=== PATIENT | female | born 1985 | race Caucasian/White ===

== ENCOUNTER 2020-11-12 03:33 | Emergency (ER) | payer BC ==
[2020-11-12 04:50] VITALS: BP 94/65; PULSE 81; TEMP 98.2; BMI 29.2
== END 2020-11-12 06:19 | disposition home or self-care (01) ==
LOC: JER 03:33
DX: F11.10 Opioid abuse, uncomplicated (principal); T74.11XA Adult physical abuse, confirmed, initial encounter
CPT/HCPCS: 84703; 99284-25

== ENCOUNTER 2020-11-12 14:23 | Inpatient (IN) | payer BC ==
[2020-11-12 07:08] VITALS: BMI 22.8
[2020-11-12] MEDS ORDERED: MENTHOL/PHENOL 1 EACH UD MM PRN (16:06)
[2020-11-12] MEDS ORDERED: MAGNESIUM CITRATE 300 ML BOTTLE PO PRN (16:06)
[2020-11-12] MEDS ORDERED: BISMUTH SUBSALICYLATE 524 MG/30 ML PO PRN (16:06)
[2020-11-12] MEDS ORDERED: cloNIDine HCL 0.1 MG TABLET PO PRN (16:06)
[2020-11-12] MEDS ORDERED: NICOTINE POLACRILEX 2 MG GUM BUC PRN (16:06)
[2020-11-12] MEDS ORDERED: MAG HYDROX/AL HYDROX/SIMETH 30 ML UNIT-DOSE CUP PO PRN (16:06)
[2020-11-12] MEDS ORDERED: MAGNESIUM HYDROX 2400MG/30ML ORAL SUSPENSION 30 ML CUP PO PRN (16:06)
[2020-11-12] MEDS ORDERED: ONDANSETRON *ODT* 4 MG TABLET SL PRN (16:06)
[2020-11-12] MEDS ORDERED: IBUPROFEN 400 MG TABLET (FP) PO PRN (16:06)
[2020-11-12] MEDS ORDERED: METHOCARBAMOL 500 MG TABLET PO PRN (16:06)
[2020-11-12] MEDS ORDERED: ACETAMINOPHEN 325 MG TABLET (FP) PO PRN ×2 (16:06)
[2020-11-12] MEDS ORDERED: METHADONE HCL 10 MG TABLET (FOR DETOX USE ONLY) PO ONE (16:06)
[2020-11-12] MEDS ORDERED: ALBUTEROL SO4 HFA INHALER IH PRN (16:08)
[2020-11-12] MEDS: hydrOXYzine PAMOATE 25 MG CAPSULE (FP) PO SCH ×2 (18:45→23:45)
[2020-11-12] MEDS: PRENATAL VITAMINS W/ FOLIC ACID TABLET (FP) PO SCH (18:46)
[2020-11-12] MEDS ORDERED: MELATONIN 5 MG TABLETS PO SCH (22:00)
[2020-11-12] MEDS ORDERED: THIAMINE HCL 100 MG TABLET (FP) PO SCH (22:00)
[2020-11-13] MEDS: hydrOXYzine PAMOATE 25 MG CAPSULE (FP) PO SCH ×2 (05:25→09:00)
[2020-11-13] MEDS ORDERED: METHADONE HCL 10 MG TABLET (FOR DETOX USE ONLY) ONE (08:51)
[2020-11-13] MEDS ORDERED: METHADONE HCL 5 MG TABLET (FOR DETOX USE ONLY) ONE (08:52)
[2020-11-13] MEDS: PRENATAL VITAMINS W/ FOLIC ACID TABLET (FP) PO SCH (09:00)
[2020-11-13 09:17] VITALS: BP 96/66; PULSE 76; TEMP 96.8
[2020-11-13] MEDS ORDERED: NICOTINE 21 MG/24 HOURS TOPICAL PATCH TD SCH (10:00)
[2020-11-13] MEDS ORDERED: METHADONE (DETOX) 20 MG, METHADONE (DETOX) 5 MG PO ONE (10:00)
[2020-11-13 12:20] LABS: HEMATOCRIT 38.7 % (32.4-45.2); HEMOGLOBIN 13.2 GM/dL (10.7-15.3); MCH 30.3 pg (25.7-33.7); MCHC 34.1 g/dl (32.0-36.0); MEAN PLT VOLUME 7.6 fl (7.5-11.1); PLATELET COUNT 383 K/MM3 (134-434); RBC 4.35 M/mm3 (3.60-5.2); WHITE BLOOD COUNT 7.7 K/mm3 (4.0-10.0)
[2020-11-13 12:38] LABS: ALBUMIN 3.6 g/dl (3.4-5.0); BLOOD UREA NITROGEN 13.5 mg/dL (7-18); CALCIUM 9.2 mg/dL (8.5-10.1)
[2020-11-13 12:39] LABS: CREATININE 0.9 mg/dL (0.55-1.3)
[2020-11-13 12:41] LABS: BILIRUBIN,TOTAL 0.5 mg/dL (0.2-1); TOT PROT 6.8 g/dl (6.4-8.2)
[2020-11-14] MEDS ORDERED: METHADONE HCL 10 MG TABLET (FOR DETOX USE ONLY) PO ONE (10:00)
[2020-11-15] MEDS ORDERED: METHADONE (DETOX) 10 MG, METHADONE (DETOX) 5 MG PO ONE (10:00)
[2020-11-16] MEDS ORDERED: METHADONE HCL 10 MG TABLET (FOR DETOX USE ONLY) PO ONE (10:00)
[2020-11-17] MEDS ORDERED: METHADONE HCL 5 MG TABLET (FOR DETOX USE ONLY) PO ONE (06:00)
== END 2020-11-13 10:49 | disposition left against medical advice (07) | DRG 770 ==
LOC: YASAS 14:23 → Y3N 16:40
PROVIDERS: ADMIT Allergy & Immunology; ATTEND Allergy & Immunology
PROC: HZ2ZZZZ Detoxification Services for Substance Abuse Treatment (ICD-10-PCS; principal; 2020-11-12)
DX: F11.23 Opioid dependence with withdrawal (principal); F12.20 Cannabis dependence, uncomplicated; F17.210 Nicotine dependence, cigarettes, uncomplicated; F19.280 Other psychoactive substance dependence with psychoactive substance-induced anxiety disorder; F19.24 Other psychoactive substance dependence with psychoactive substance-induced mood disorder; J45.20 Mild intermittent asthma, uncomplicated; G40.909 Epilepsy, unspecified, not intractable, without status epilepticus; M12.9 Arthropathy, unspecified; Z91.410 Personal history of adult physical and sexual abuse
CPT/HCPCS: 36415; 80053; 81025; 84703; 85027; 86780; 99284-25; C9803; U0003; U0005

== ENCOUNTER 2024-02-08 11:20 | Inpatient (IN) | payer BC ==
[2024-02-08 12:24] VITALS: BMI 18.6
[2024-02-08] MEDS ORDERED: BENZONATATE 200 MG CAPSULE PO PRN (12:57)
[2024-02-08] MEDS ORDERED: NALOXONE HCL 0.4 MG/ML VIAL IM PRN (12:57)
[2024-02-08] MEDS ORDERED: MAG HYDROX/AL HYDROX/SIMETH 30 ML UNIT-DOSE CUP PO PRN (12:57)
[2024-02-08] MEDS ORDERED: ONDANSETRON *ODT* 4 MG TABLET SL PRN (12:57)
[2024-02-08] MEDS ORDERED: BENZOCAINE/MENTHOL (CHLORASEPTIC ) LOZENGE MM PRN (12:57)
[2024-02-08] MEDS ORDERED: LOPERAMIDE HCL 2 MG CAPSULE PO PRN (12:57)
[2024-02-08] MEDS ORDERED: BISMUTH SUBSALICYLATE 262 MG/15 ML BTL PO PRN (12:57)
[2024-02-08] MEDS ORDERED: guaiFENesin 600 MG TABLET.ER (FP) PO PRN (12:57)
[2024-02-08] MEDS ORDERED: NALOXONE (NARCAN) HCL 4 MG/0.1 ML SPRAY NS PRN (12:57)
[2024-02-08] MEDS ORDERED: NICOTINE POLACRILEX 4 MG LOZENGE BC PRN (12:57)
[2024-02-08] MEDS ORDERED: IBUPROFEN 400 MG TABLET (FP) PO PRN (12:57)
[2024-02-08] MEDS ORDERED: DICYCLOMINE HCL 10 MG CAPSULE PO PRN (12:57)
[2024-02-08] MEDS ORDERED: ALBUTEROL SO4 HFA INHALER IH PRN (13:03)
[2024-02-08] MEDS: NICOTINE POLACRILEX 4 MG GUM BUC PRN (15:40)
[2024-02-08] MEDS: diazePAM 5 MG TABLET PO SCH (17:54)
[2024-02-08 20:26] LABS: HIV INTERPRETATION NEGATIVE (NEGATIVE)
[2024-02-08] MEDS: levETIRAcetam 500 MG TABLET (FP) PO SCH (22:57)
[2024-02-08] MEDS: THIAMINE 100 MG TABLET PO SCH (22:57)
[2024-02-08] MEDS: MELATONIN 5 MG TABLETS PO SCH (22:57)
[2024-02-09] MEDS: hydrOXYzine PAMOATE 25 MG CAPSULE (FP) PO PRN (02:57)
[2024-02-09] MEDS: METHOCARBAMOL 500 MG TABLET PO PRN (02:57)
[2024-02-09] MEDS: methaDONE 40 MG, methaDONE 10 MG PO SCH (05:40)
[2024-02-09] MEDS ORDERED: methaDONE HCL 10 MG TABLET PO SCH (06:00)
[2024-02-09] MEDS: PRENATAL VITAMINS W/ FOLIC ACID TABLET (FP) PO SCH (10:40)
[2024-02-09] MEDS: PANTOPRAZOLE SOD 40 MG SUSPENSION PACKET PO SCH (10:40)
[2024-02-09] MEDS: methaDONE HCL 10 MG TABLET PO ONE (10:50)
[2024-02-09] MEDS: EMTRICITABINE 200MG/TENOFOVIR 300MG PO SCH (11:00)
[2024-02-09 11:59] LABS: HEMATOCRIT 34.9 % (32.4-45.2); HEMOGLOBIN 11.7 GM/dL (10.7-15.3); MCH 29.1 pg (25.7-33.7); MCHC 33.5 g/dl (32.0-36.0); MEAN CELL VOLUME 86.8 fl (80-96); MEAN PLT VOLUME 6.9 fl (7.5-11.1); PLATELET COUNT 286 10^3/uL (134-434); RBC 4.02 M/mm3 (3.60-5.2); RDW 12.8 % (11.6-15.6); WHITE BLOOD COUNT 3.4 K/mm3 (4.0-10.0)
[2024-02-09 12:00] LABS: POTASSIUM 4.2 mmol/L (3.5-5.1)
[2024-02-09 12:06] LABS: ALBUMIN 2.6 g/dl (3.4-5.0); BLOOD UREA NITROGEN 14.4 mg/dL (7-18); CALCIUM 8.2 mg/dL (8.5-10.1)
[2024-02-09 12:09] LABS: CREATININE 0.6 mg/dL (0.55-1.3)
[2024-02-09 12:10] LABS: BILIRUBIN,TOTAL 0.2 mg/dL (0.2-1); TOT PROT 5.9 g/dl (6.4-8.2)
[2024-02-10] MEDS ORDERED: cloNIDine HCL 0.1 MG TABLET PO PRN
[2024-02-10] MEDS: diazePAM 5 MG TABLET PO PRN (03:39)
[2024-02-10] MEDS: diazePAM 5 MG TABLET PO SCH (06:40)
[2024-02-10] MEDS: MAGNESIUM HYDROX 2400MG/30ML ORAL SUSPENSION 30 ML CUP PO PRN (16:33)
[2024-02-10] MEDS: ACETAMINOPHEN 325 MG TABLET (FP) PO PRN (17:51)
[2024-02-10] MEDS: POLYETHYLENE GLYCOL (HEALTHYLAX) 3350 17 GM PACKET PO PRN (22:37)
[2024-02-11] MEDS: IBUPROFEN 600 MG TABLET (FP) PO PRN (03:30)
[2024-02-11] MEDS: diazePAM 5 MG TABLET PO SCH (06:49)
[2024-02-11] MEDS: DOCUSATE SODIUM 100 MG CAPSULE (FP) PO SCH (13:09)
[2024-02-11 20:58] VITALS: RESP 16
[2024-02-12 06:26] VITALS: TEMP 98.6
[2024-02-12] MEDS: diazePAM 5 MG TABLET PO ONE (06:27)
[2024-02-12] MEDS ORDERED: GLYCERIN 1 RECTAL SUPPOSITORY, ADULT RC ONE (09:33)
[2024-02-12 09:43] VITALS: BP 101/61; PULSE 75
[2024-02-12] MEDS: METHYL SALICYLATE/MENTHOL OINT 30 GM TUBE TP SCH (10:57)
== END 2024-02-12 11:00 | disposition home or self-care (01) | DRG 773 ==
LOC: YASAS 11:20 → Y3N 14:57
PROVIDERS: ADMIT Allergy & Immunology; ATTEND Surgery
PROC: HZ2ZZZZ Detoxification Services for Substance Abuse Treatment (ICD-10-PCS; principal; 2024-02-08)
DX: F11.23 Opioid dependence with withdrawal (principal); F10.230 Alcohol dependence with withdrawal, uncomplicated; F14.20 Cocaine dependence, uncomplicated; F13.20 Sedative, hypnotic or anxiolytic dependence, uncomplicated; F12.20 Cannabis dependence, uncomplicated; F17.210 Nicotine dependence, cigarettes, uncomplicated; F19.280 Other psychoactive substance dependence with psychoactive substance-induced anxiety disorder; F19.24 Other psychoactive substance dependence with psychoactive substance-induced mood disorder; G40.909 Epilepsy, unspecified, not intractable, without status epilepticus; J45.20 Mild intermittent asthma, uncomplicated
CPT/HCPCS: 0241U-QW; 36415; 80053; 80177; 80305; 80307; 81025; 82140; 85027; 86780; 86803; 87389; 87522; 93005; 93010

== ENCOUNTER 2024-03-15 19:33 | Inpatient (IN) | payer BC ==
[2024-03-15 21:04] VITALS: BMI 19.9
[2024-03-15] MEDS ORDERED: ONDANSETRON *ODT* 4 MG TABLET SL PRN (22:06)
[2024-03-15] MEDS ORDERED: NALOXONE (NARCAN) HCL 4 MG/0.1 ML SPRAY NS PRN (22:06)
[2024-03-15] MEDS ORDERED: LOPERAMIDE HCL 2 MG CAPSULE PO PRN (22:06)
[2024-03-15] MEDS ORDERED: MAG HYDROX/AL HYDROX/SIMETH 30 ML UNIT-DOSE CUP PO PRN (22:06)
[2024-03-15] MEDS ORDERED: MAGNESIUM HYDROX 2400MG/30ML ORAL SUSPENSION 30 ML CUP PO PRN (22:06)
[2024-03-15] MEDS ORDERED: guaiFENesin 600 MG TABLET.ER (FP) PO PRN (22:06)
[2024-03-15] MEDS ORDERED: NALOXONE HCL 0.4 MG/ML VIAL IM PRN (22:06)
[2024-03-15] MEDS ORDERED: NICOTINE POLACRILEX 2 MG LOZENGE BC PRN (22:06)
[2024-03-15] MEDS ORDERED: BISMUTH SUBSALICYLATE 524 MG/30 ML PO PRN (22:06)
[2024-03-15] MEDS ORDERED: BENZONATATE 200 MG CAPSULE PO PRN (22:06)
[2024-03-15] MEDS ORDERED: IBUPROFEN 400 MG TABLET (FP) PO PRN (22:06)
[2024-03-15] MEDS ORDERED: IBUPROFEN 600 MG TABLET (FP) PO PRN (22:06)
[2024-03-15] MEDS ORDERED: ACETAMINOPHEN 325 MG TABLET (FP) PO PRN (22:06)
[2024-03-15] MEDS ORDERED: POLYETHYLENE GLYCOL (HEALTHYLAX) 3350 17 GM PACKET PO PRN (22:06)
[2024-03-16 09:28] LABS: CHLORIDE 101 mmol/L (98-107); POTASSIUM 4.1 mmol/L (3.5-5.1); SODIUM 137 mmol/L (136-145)
[2024-03-16 09:29] LABS: HEMATOCRIT 34.5 % (32.4-45.2); HEMOGLOBIN 11.7 GM/dL (10.7-15.3); MCH 29.6 pg (25.7-33.7); MEAN PLT VOLUME 6.8 fl (7.5-11.1); PLATELET COUNT 246 10^3/uL (134-434); RBC 3.96 M/mm3 (3.60-5.2); RDW 13.9 % (11.6-15.6); WHITE BLOOD COUNT 10.6 K/mm3 (4.0-10.0)
[2024-03-16 09:36] LABS: BLOOD UREA NITROGEN 14.7 mg/dL (7-18)
[2024-03-16 09:43] LABS: ALBUMIN 2.9 g/dl (3.4-5.0); ANION GAP 8 mmol/L (4-13); CALCIUM 8.8 mg/dL (8.5-10.1); CO2 28 mmol/L (21-32); GLUCOSE,RANDOM 113 mg/dL (74-106)
[2024-03-16 09:46] LABS: CREATININE 0.7 mg/dL (0.55-1.3); SGOT/AST 49 U/L (15-37); SGPT/ALT 63 U/L (13-61)
[2024-03-16 09:48] LABS: BILIRUBIN,TOTAL 0.9 mg/dL (0.2-1); TOT PROT 6.4 g/dl (6.4-8.2)
[2024-03-16 09:49] LABS: ALK PHOS 236 U/L (45-117)
[2024-03-16] MEDS: NICOTINE 21 MG/24 HOURS TOPICAL PATCH TD SCH (10:52)
[2024-03-16] MEDS: PRENATAL VITAMINS W/ FOLIC ACID TABLET (FP) PO SCH (10:52)
[2024-03-16] MEDS: methaDONE HCL 40 MG DISPERSABLE TABLET PO SCH ×2 (10:58→11:02)
[2024-03-16] MEDS: THIAMINE 100 MG TABLET PO SCH (22:44)
[2024-03-17] MEDS ORDERED: ALBUTEROL SO4 HFA INHALER IH PRN (09:59)
[2024-03-17] MEDS: levETIRAcetam 500 MG TABLET (FP) PO SCH (10:37)
[2024-03-17] MEDS: chlordiazePOXIDE HCL 25 MG CAPSULE PO SCH (10:37)
[2024-03-17] MEDS: SULFAMETHOXAZOLE/TRIMETHOPRIM 800MG/160MG D.S. TABLET PO SCH (13:15)
[2024-03-17] MEDS: BENZOCAINE/MENTHOL (CHLORASEPTIC ) LOZENGE MM PRN (22:39)
[2024-03-18] MEDS: chlordiazePOXIDE HCL 25 MG CAPSULE PO SCH (05:55)
[2024-03-19] MEDS ORDERED: chlordiazePOXIDE HCL 25 MG CAPSULE PO SCH (05:00)
[2024-03-19] MEDS: chlordiazePOXIDE HCL 10 MG CAPSULE PO SCH (05:55)
[2024-03-19] MEDS: BENZONATATE 200 MG CAPSULE PO PRN (17:25)
[2024-03-19] MEDS: guaiFENesin 200 MG/10 ML 10 ML UNIT-DOSE CUPS PO PRN (18:07)
[2024-03-19] MEDS: chlordiazePOXIDE HCL 25 MG CAPSULE PO PRN (22:30)
[2024-03-20] MEDS ORDERED: chlordiazePOXIDE HCL 10 MG CAPSULE PO PRN
[2024-03-20] MEDS ORDERED: chlordiazePOXIDE HCL 10 MG CAPSULE PO SCH (05:00)
[2024-03-20] MEDS: chlordiazePOXIDE HCL 10 MG CAPSULE PO ONE (05:53)
[2024-03-20 08:48] VITALS: BP 121/68; PULSE 84; RESP 18; TEMP 98.2
[2024-03-21] MEDS ORDERED: chlordiazePOXIDE HCL 10 MG CAPSULE PO SCH (05:00)
[2024-03-22] MEDS ORDERED: chlordiazePOXIDE HCL 10 MG CAPSULE PO ONE (05:00)
== END 2024-03-20 09:08 | disposition home or self-care (01) | DRG 773 ==
LOC: YASAS 19:33 → Y6N 22:56 → Y3N 23:05
PROVIDERS: ADMIT Allergy & Immunology; ATTEND Surgery
PROC: HZ2ZZZZ Detoxification Services for Substance Abuse Treatment (ICD-10-PCS; principal; 2024-03-15)
DX: F10.230 Alcohol dependence with withdrawal, uncomplicated (principal); F11.20 Opioid dependence, uncomplicated; F14.20 Cocaine dependence, uncomplicated; F17.210 Nicotine dependence, cigarettes, uncomplicated; J45.20 Mild intermittent asthma, uncomplicated; G40.909 Epilepsy, unspecified, not intractable, without status epilepticus; R40.0 Somnolence; Z56.0 Unemployment, unspecified; Z59.00 Homelessness unspecified
CPT/HCPCS: 36415; 80053; 80305; 80307; 81025; 85027; 86780

== ENCOUNTER 2024-03-24 21:17 | Inpatient (IN) | payer BC ==
[2024-03-24 21:43] VITALS: BMI 22.8
[2024-03-24] MEDS ORDERED: LOPERAMIDE HCL 2 MG CAPSULE PO PRN (23:21)
[2024-03-24] MEDS ORDERED: BISMUTH SUBSALICYLATE 524 MG/30 ML PO PRN (23:21)
[2024-03-24] MEDS ORDERED: NALOXONE HCL 0.4 MG/ML VIAL IM PRN (23:21)
[2024-03-24] MEDS ORDERED: ACETAMINOPHEN 325 MG TABLET (FP) PO PRN (23:21)
[2024-03-24] MEDS ORDERED: IBUPROFEN 600 MG TABLET (FP) PO PRN (23:21)
[2024-03-24] MEDS ORDERED: DICYCLOMINE HCL 10 MG CAPSULE PO PRN (23:21)
[2024-03-24] MEDS ORDERED: IBUPROFEN 400 MG TABLET (FP) PO PRN (23:21)
[2024-03-24] MEDS ORDERED: NALOXONE (NARCAN) HCL 4 MG/0.1 ML SPRAY NS PRN (23:21)
[2024-03-24] MEDS ORDERED: MAGNESIUM HYDROX 2400MG/30ML ORAL SUSPENSION 30 ML CUP PO PRN (23:21)
[2024-03-24] MEDS ORDERED: ONDANSETRON *ODT* 4 MG TABLET SL PRN (23:21)
[2024-03-24] MEDS ORDERED: METHOCARBAMOL 500 MG TABLET PO PRN (23:21)
[2024-03-24] MEDS ORDERED: hydrOXYzine PAMOATE 25 MG CAPSULE (FP) PO PRN (23:21)
[2024-03-25] MEDS ORDERED: ALBUTEROL SO4 HFA INHALER IH PRN (07:05)
[2024-03-25] MEDS ORDERED: diazePAM 5 MG TABLET PO PRN (09:30)
[2024-03-25] MEDS ORDERED: methaDONE HCL 10 MG TABLET PO SCH (09:45)
[2024-03-25] MEDS: methaDONE 80 MG, methaDONE 20 MG PO ONE (10:01)
[2024-03-25] MEDS: diazePAM 5 MG TABLET PO SCH (10:01)
[2024-03-25] MEDS: PRENATAL VITAMINS W/ FOLIC ACID TABLET (FP) PO SCH (10:02)
[2024-03-25] MEDS: levETIRAcetam 250 MG TABLET PO SCH (10:02)
[2024-03-25] MEDS: NICOTINE 14 MG/24 HOURS TOPICAL PATCH TD SCH (10:02)
[2024-03-25 11:02] LABS: HEMATOCRIT 37.6 % (32.4-45.2); HEMOGLOBIN 12.2 GM/dL (10.7-15.3); MCH 29.1 pg (25.7-33.7); MCHC 32.4 g/dl (32.0-36.0); MEAN CELL VOLUME 89.9 fl (80-96); MEAN PLT VOLUME 6.6 fl (7.5-11.1); PLATELET COUNT 477 10^3/uL (134-434); RBC 4.19 M/mm3 (3.60-5.2); WHITE BLOOD COUNT 6.3 K/mm3 (4.0-10.0)
[2024-03-25 11:06] LABS: CHLORIDE 104 mmol/L (98-107); POTASSIUM 3.8 mmol/L (3.5-5.1); SODIUM 138 mmol/L (136-145)
[2024-03-25 11:09] LABS: CALCIUM 9.1 mg/dL (8.5-10.1)
[2024-03-25 11:10] LABS: ALBUMIN 2.9 g/dl (3.4-5.0); ANION GAP 7 mmol/L (4-13); BLOOD UREA NITROGEN 16.4 mg/dL (7-18); CO2 27 mmol/L (21-32); GLUCOSE,RANDOM 142 mg/dL (74-106)
[2024-03-25 11:13] LABS: CREATININE 0.7 mg/dL (0.55-1.3); SGOT/AST 21 U/L (15-37); SGPT/ALT 81 U/L (13-61)
[2024-03-25 11:14] LABS: TOT PROT 6.9 g/dl (6.4-8.2)
[2024-03-25 11:23] LABS: ALK PHOS 267 U/L (45-117)
[2024-03-25 11:38] LABS: BILIRUBIN,TOTAL 0.3 mg/dL (0.2-1)
[2024-03-25] MEDS: MELATONIN 5 MG TABLETS PO SCH (22:23)
[2024-03-25] MEDS: THIAMINE 100 MG TABLET PO SCH (22:23)
[2024-03-26] MEDS: methaDONE 80 MG, methaDONE 20 MG PO SCH (05:53)
[2024-03-26] MEDS: BENZOCAINE/MENTHOL (CHLORASEPTIC ) LOZENGE MM PRN (07:29)
[2024-03-26] MEDS ORDERED: chlordiazePOXIDE HCL 25 MG CAPSULE PO PRN (07:49)
[2024-03-26] MEDS: chlordiazePOXIDE HCL 25 MG CAPSULE PO SCH (10:00)
[2024-03-26] MEDS: BENZONATATE 200 MG CAPSULE PO PRN (11:33)
[2024-03-26] MEDS: guaiFENesin 600 MG TABLET.ER (FP) PO PRN (11:33)
[2024-03-27] MEDS: guaiFENesin 200 MG/10 ML 10 ML UNIT-DOSE CUPS PO PRN (03:02)
[2024-03-27] MEDS ORDERED: diazePAM 5 MG TABLET PO SCH (06:00)
[2024-03-27] MEDS: MAG HYDROX/AL HYDROX/SIMETH 30 ML UNIT-DOSE CUP PO PRN (22:22)
[2024-03-28] MEDS: chlordiazePOXIDE HCL 25 MG CAPSULE PO SCH (05:51)
[2024-03-28] MEDS ORDERED: diazePAM 5 MG TABLET PO SCH (06:00)
[2024-03-28] MEDS: POLYETHYLENE GLYCOL (HEALTHYLAX) 3350 17 GM PACKET PO PRN (14:40)
[2024-03-29] MEDS ORDERED: chlordiazePOXIDE HCL 10 MG CAPSULE PO PRN
[2024-03-29] MEDS: chlordiazePOXIDE HCL 10 MG CAPSULE PO SCH (05:20)
[2024-03-29] MEDS ORDERED: diazePAM 5 MG TABLET PO ONE (06:00)
[2024-03-29] MEDS: NICOTINE POLACRILEX 2 MG GUM BUC PRN (11:34)
[2024-03-29 16:59] VITALS: RESP 16; TEMP 97.7
[2024-03-29 17:52] VITALS: BP 104/50; PULSE 78
[2024-03-30] MEDS ORDERED: chlordiazePOXIDE HCL 10 MG CAPSULE PO SCH (05:00)
[2024-03-31] MEDS ORDERED: chlordiazePOXIDE HCL 10 MG CAPSULE PO ONE (05:00)
== END 2024-03-29 19:20 | disposition left against medical advice (07) | DRG 770 ==
LOC: YASAS 21:17 → Y3N 23:25
PROVIDERS: ADMIT Allergy & Immunology; ATTEND Surgery
PROC: HZ2ZZZZ Detoxification Services for Substance Abuse Treatment (ICD-10-PCS; principal; 2024-03-24)
DX: F10.230 Alcohol dependence with withdrawal, uncomplicated (principal); F14.20 Cocaine dependence, uncomplicated; F11.20 Opioid dependence, uncomplicated; F12.20 Cannabis dependence, uncomplicated; F17.210 Nicotine dependence, cigarettes, uncomplicated; F19.282 Other psychoactive substance dependence with psychoactive substance-induced sleep disorder; F19.24 Other psychoactive substance dependence with psychoactive substance-induced mood disorder; G40.909 Epilepsy, unspecified, not intractable, without status epilepticus; J45.20 Mild intermittent asthma, uncomplicated; Z56.0 Unemployment, unspecified; Z59.00 Homelessness unspecified
CPT/HCPCS: 36415; 71046-TC-FY; 80053; 80305; 80307; 81025; 85027; 86780

== ENCOUNTER 2024-04-15 14:37 | Inpatient (IN) | payer BC ==
[2024-04-15 14:57] VITALS: BMI 20.8
[2024-04-15] MEDS ORDERED: ALBUTEROL SO4 HFA INHALER IH PRN (16:39)
[2024-04-15] MEDS ORDERED: guaiFENesin 600 MG TABLET.ER (FP) PO PRN (16:40)
[2024-04-15] MEDS ORDERED: POLYETHYLENE GLYCOL (HEALTHYLAX) 3350 17 GM PACKET PO PRN (16:40)
[2024-04-15] MEDS ORDERED: NALOXONE HCL 0.4 MG/ML VIAL IM PRN (16:40)
[2024-04-15] MEDS ORDERED: NICOTINE POLACRILEX 2 MG LOZENGE BC PRN (16:40)
[2024-04-15] MEDS ORDERED: NICOTINE POLACRILEX 2 MG GUM BUC PRN (16:40)
[2024-04-15] MEDS ORDERED: MAGNESIUM HYDROX 2400MG/30ML ORAL SUSPENSION 30 ML CUP PO PRN (16:40)
[2024-04-15] MEDS ORDERED: NALOXONE (NARCAN) HCL 4 MG/0.1 ML SPRAY NS PRN (16:40)
[2024-04-15] MEDS ORDERED: BENZOCAINE/MENTHOL (CHLORASEPTIC ) LOZENGE MM PRN (16:40)
[2024-04-15] MEDS ORDERED: MAG HYDROX/AL HYDROX/SIMETH 30 ML UNIT-DOSE CUP PO PRN (16:40)
[2024-04-15] MEDS ORDERED: DICYCLOMINE HCL 10 MG CAPSULE PO PRN (16:40)
[2024-04-15] MEDS ORDERED: BENZONATATE 200 MG CAPSULE PO PRN (16:40)
[2024-04-15] MEDS ORDERED: P-EPHED 60MG/TRIPROLIDI 2.5MG TABLET PO PRN (16:40)
[2024-04-15] MEDS ORDERED: IBUPROFEN 400 MG TABLET (FP) PO PRN (16:40)
[2024-04-15] MEDS: MELATONIN 5 MG TABLETS PO SCH (22:44)
[2024-04-15] MEDS: THIAMINE 100 MG TABLET PO SCH (22:44)
[2024-04-15] MEDS: levETIRAcetam 500 MG TABLET (FP) PO SCH (22:44)
[2024-04-15] MEDS: hydrOXYzine PAMOATE 25 MG CAPSULE (FP) PO PRN (22:45)
[2024-04-15] MEDS: METHOCARBAMOL 500 MG TABLET PO PRN (22:45)
[2024-04-16] MEDS ORDERED: methaDONE HCL 10 MG TABLET PO SCH (08:15)
[2024-04-16] MEDS: PRENATAL VITAMINS W/ FOLIC ACID TABLET (FP) PO SCH (09:15)
[2024-04-16] MEDS: chlordiazePOXIDE HCL 25 MG CAPSULE PO SCH (17:59)
[2024-04-16] MEDS: SUVOREXANT 10 MG TABLET PO PRN (22:49)
[2024-04-16] MEDS: ONDANSETRON *ODT* 4 MG TABLET SL PRN (22:50)
[2024-04-17] MEDS: IBUPROFEN 600 MG TABLET (FP) PO PRN (00:53)
[2024-04-17] MEDS: chlordiazePOXIDE 5 MG CAPSULE PO PRN (13:26)
[2024-04-17] MEDS: LOPERAMIDE HCL 2 MG CAPSULE PO PRN (17:04)
[2024-04-18] MEDS: ACETAMINOPHEN 325 MG TABLET (FP) PO PRN (04:15)
[2024-04-18] MEDS: chlordiazePOXIDE 5 MG CAPSULE PO SCH (05:22)
[2024-04-19] MEDS: chlordiazePOXIDE 5 MG CAPSULE PO PRN (06:24)
[2024-04-19] MEDS: chlordiazePOXIDE 5 MG CAPSULE PO SCH ×2 (06:25→16:55)
[2024-04-19] MEDS: LIDOCAINE 5% TOPICAL PATCH TP SCH (11:40)
[2024-04-19] MEDS: ACAMPROSATE CALCIUM 333 MG TABLET.DR PO SCH (13:06)
[2024-04-19] MEDS: LIDOCAINE PATCH REMOVAL MC SCH (22:42)
[2024-04-20] MEDS: chlordiazePOXIDE 5 MG CAPSULE PO SCH (05:04)
[2024-04-20] MEDS: hydrOXYzine PAMOATE 25 MG CAPSULE (FP) PO ONE (19:37)
[2024-04-21] MEDS: chlordiazePOXIDE 5 MG CAPSULE PO ONE (05:50)
[2024-04-21 09:48] VITALS: TEMP 97.6
[2024-04-21] MEDS: hydrOXYzine PAMOATE 50 MG CAPSULE (FP) PO PRN (10:16)
[2024-04-21] MEDS: chlordiazePOXIDE HCL 10 MG CAPSULE PO PRN (12:52)
[2024-04-21 13:06] VITALS: BP 132/78; PULSE 83; RESP 18
[2024-04-21] MEDS: BISMUTH SUBSALICYLATE 524 MG/30 ML PO PRN (16:20)
== END 2024-04-21 18:15 | disposition home or self-care (01) | DRG 773 ==
LOC: YASAS 14:37 → Y6N 19:49
PROVIDERS: ADMIT Allergy & Immunology; ATTEND Surgery
PROC: HZ2ZZZZ Detoxification Services for Substance Abuse Treatment (ICD-10-PCS; principal; 2024-04-15)
DX: F10.230 Alcohol dependence with withdrawal, uncomplicated (principal); F11.20 Opioid dependence, uncomplicated; F14.20 Cocaine dependence, uncomplicated; F13.20 Sedative, hypnotic or anxiolytic dependence, uncomplicated; F17.210 Nicotine dependence, cigarettes, uncomplicated; F19.282 Other psychoactive substance dependence with psychoactive substance-induced sleep disorder; F19.280 Other psychoactive substance dependence with psychoactive substance-induced anxiety disorder; F41.9 Anxiety disorder, unspecified; G40.909 Epilepsy, unspecified, not intractable, without status epilepticus; J45.20 Mild intermittent asthma, uncomplicated; M54.50 Low back pain, unspecified; G89.29 Other chronic pain
CPT/HCPCS: 36415; 80305; 80307; 81025; 93005; 93010; Q0162

== ENCOUNTER 2024-05-17 16:25 | Inpatient (IN) | payer BC ==
[2024-05-17 17:08] VITALS: BMI 20.8
[2024-05-17] MEDS ORDERED: ONDANSETRON *ODT* 4 MG TABLET SL PRN (18:50)
[2024-05-17] MEDS ORDERED: IBUPROFEN 400 MG TABLET (FP) PO PRN (18:50)
[2024-05-17] MEDS ORDERED: POLYETHYLENE GLYCOL (HEALTHYLAX) 3350 17 GM PACKET PO PRN (18:50)
[2024-05-17] MEDS ORDERED: BENZONATATE 200 MG CAPSULE PO PRN (18:50)
[2024-05-17] MEDS ORDERED: NALOXONE (NYS OPIOID OVERDOSE PROGRAM) 4 MG/0.1 ML SPRAY NS PRN (18:50)
[2024-05-17] MEDS ORDERED: guaiFENesin 600 MG TABLET.ER (FP) PO PRN (18:50)
[2024-05-17] MEDS ORDERED: DICYCLOMINE HCL 10 MG CAPSULE PO PRN (18:50)
[2024-05-17] MEDS ORDERED: NALOXONE (NARCAN) HCL 4 MG/0.1 ML SPRAY NS PRN (18:50)
[2024-05-17] MEDS ORDERED: MAGNESIUM HYDROX 2400MG/30ML ORAL SUSPENSION 30 ML CUP PO PRN (18:50)
[2024-05-17] MEDS ORDERED: ALBUTEROL SO4 HFA INHALER IH PRN (19:03)
[2024-05-17] MEDS: MELATONIN 5 MG TABLETS PO SCH (22:42)
[2024-05-17] MEDS: levETIRAcetam 250 MG TABLET PO SCH (22:42)
[2024-05-17] MEDS: THIAMINE 100 MG TABLET PO SCH (22:42)
[2024-05-17] MEDS: chlordiazePOXIDE HCL 25 MG CAPSULE PO SCH (22:42)
[2024-05-17] MEDS: hydrOXYzine PAMOATE 25 MG CAPSULE (FP) PO PRN (22:43)
[2024-05-18] MEDS: INSULIN ASPART SLIDING SCALE (NOVOLOG) 1 VIAL SQ SCH (07:02)
[2024-05-18] MEDS: PRENATAL VITAMINS W/ FOLIC ACID TABLET (FP) PO SCH (10:16)
[2024-05-18] MEDS: methaDONE HCL 40 MG DISPERSABLE TABLET PO SCH (11:10)
[2024-05-18 12:29] LABS: HEMATOCRIT 35.9 % (32.4-45.2); HEMOGLOBIN 11.8 GM/dL (10.7-15.3); MCH 28.8 pg (25.7-33.7); MCHC 32.8 g/dl (32.0-36.0); MEAN PLT VOLUME 7.3 fl (7.5-11.1); PLATELET COUNT 223 10^3/uL (134-434); RBC 4.08 M/mm3 (3.60-5.2); RDW 14.1 % (11.6-15.6); WHITE BLOOD COUNT 4.8 K/mm3 (4.0-10.0)
[2024-05-18] MEDS: MAG HYDROX/AL HYDROX/SIMETH 30 ML UNIT-DOSE CUP PO PRN (13:32)
[2024-05-18 13:34] LABS: CHLORIDE 107 mmol/L (98-107); POTASSIUM 3.8 mmol/L (3.5-5.1); SODIUM 143 mmol/L (136-145)
[2024-05-18 13:37] LABS: ANION GAP 4 mmol/L (4-13); CALCIUM 8.9 mg/dL (8.5-10.1); CO2 32 mmol/L (21-32); GLUCOSE,RANDOM 114 mg/dL (74-106)
[2024-05-18 13:40] LABS: CREATININE 0.8 mg/dL (0.55-1.3); SGOT/AST 98 U/L (15-37); SGPT/ALT 77 U/L (13-61)
[2024-05-18 13:42] LABS: BILIRUBIN,TOTAL 0.2 mg/dL (0.2-1); TOT PROT 6.1 g/dl (6.4-8.2)
[2024-05-18 13:43] LABS: ALK PHOS 211 U/L (45-117)
[2024-05-18] MEDS: IBUPROFEN 600 MG TABLET (FP) PO PRN (15:28)
[2024-05-18] MEDS: SUVOREXANT 10 MG TABLET PO PRN (22:03)
[2024-05-19] MEDS: chlordiazePOXIDE HCL 25 MG CAPSULE PO SCH (05:50)
[2024-05-19] MEDS: chlordiazePOXIDE HCL 25 MG CAPSULE PO PRN (10:54)
[2024-05-19] MEDS: BENZOCAINE/MENTHOL (CHLORASEPTIC ) LOZENGE MM PRN (15:53)
[2024-05-19] MEDS: METHOCARBAMOL 500 MG TABLET PO PRN (20:00)
[2024-05-20] MEDS: chlordiazePOXIDE HCL 10 MG CAPSULE PO SCH (05:38)
[2024-05-20] MEDS: BISMUTH SUBSALICYLATE 524 MG/30 ML PO PRN (05:48)
[2024-05-20] MEDS: LOPERAMIDE HCL 2 MG CAPSULE PO PRN (07:35)
[2024-05-20] MEDS: METHYL SALICYLATE/MENTHOL 30 GM TUBE TP SCH (10:41)
[2024-05-20] MEDS: LIDOCAINE 5% TOPICAL PATCH TP SCH (10:41)
[2024-05-20 14:03] LABS: BASO % 0.4 % (0-2.0); EOS % 3.8 % (0-4.5); HEMOGLOBIN 12.6 GM/dL (10.7-15.3); LYMPH % 40.9 % (8-40); MEAN CELL VOLUME 87.8 fl (80-96); MEAN PLT VOLUME 7.3 fl (7.5-11.1); MONO % 6.5 % (3.8-10.2); NEUT % 48.4 % (42.8-82.8); PLATELET COUNT 223 10^3/uL (134-434); RBC 4.34 M/mm3 (3.60-5.2); RDW 14.3 % (11.6-15.6); WHITE BLOOD COUNT 5.6 K/mm3 (4.0-10.0)
[2024-05-20 14:36] LABS: POTASSIUM 4.2 mmol/L (3.5-5.1)
[2024-05-20 14:54] LABS: ALBUMIN 3.2 g/dl (3.4-5.0); BLOOD UREA NITROGEN 10.1 mg/dL (7-18)
[2024-05-20 14:56] LABS: TOT PROT 6.5 g/dl (6.4-8.2)
[2024-05-20 14:57] LABS: CREATININE 0.8 mg/dL (0.55-1.3)
[2024-05-20] MEDS: chlordiazePOXIDE HCL 10 MG CAPSULE PO PRN (15:10)
[2024-05-20 16:03] LABS: BILIRUBIN,TOTAL 0.4 mg/dL (0.2-1)
[2024-05-20] MEDS: ACETAMINOPHEN 325 MG TABLET (FP) PO PRN (18:29)
[2024-05-20] MEDS: LIDOCAINE PATCH REMOVAL MC SCH (21:20)
[2024-05-20 23:59] LABS: EPI CELLS >36 /uL (0-25.1); HYALINE CASTS 2 /uL (0-3.1); PH,URINE 5.5 (5.0-8.0); URINE APPEARANCE CLOUDY; URINE BACTERIA 2547 /uL (0-1359); URINE BILIRUBIN NEGATIVE (NEGATIVE); URINE COLOR DK YELLOW; URINE GLUCOSE (UA) NEGATIVE (NEGATIVE); URINE KETONE TRACE (NEGATIVE); URINE LEUK ESTERASE 2+ (NEGATIVE); URINE NITRITE NEGATIVE (NEGATIVE); URINE PROTEIN NEGATIVE (NEGATIVE); URINE UROBILINOGEN 0.2 mg/dL (0.2-1.0); URINE WBC 119 /uL (0-25.8)
[2024-05-21 01:38] LABS: URINE RBC 63.5 /uL (0-23.9)
[2024-05-21 01:39] LABS: URINE CRYSTALS PRESENT /hpf
[2024-05-21] MEDS: chlordiazePOXIDE HCL 10 MG CAPSULE PO SCH (05:21)
[2024-05-21] MEDS: NITROFURANTOIN MONOHYD/M-CRYST 100 MG CAPSULE PO SCH (11:06)
[2024-05-22] MEDS: chlordiazePOXIDE HCL 10 MG CAPSULE PO ONE (05:33)
[2024-05-22 06:26] VITALS: RESP 16
[2024-05-22 09:13] VITALS: BP 111/66; PULSE 105; TEMP 97.8
== END 2024-05-22 10:34 | disposition home or self-care (01) | DRG 773 ==
LOC: YASAS 16:25 → Y6N 19:35 → Y3N 05-18 23:44
PROVIDERS: ADMIT Allergy & Immunology; ATTEND Surgery
PROC: HZ2ZZZZ Detoxification Services for Substance Abuse Treatment (ICD-10-PCS; principal; 2024-05-17)
DX: F10.230 Alcohol dependence with withdrawal, uncomplicated (principal); F11.23 Opioid dependence with withdrawal; F17.210 Nicotine dependence, cigarettes, uncomplicated; F41.9 Anxiety disorder, unspecified; G47.00 Insomnia, unspecified; G40.909 Epilepsy, unspecified, not intractable, without status epilepticus; E11.9 Type 2 diabetes mellitus without complications; J45.20 Mild intermittent asthma, uncomplicated; N30.00 Acute cystitis without hematuria
CPT/HCPCS: 36415; 80053; 80305; 80307; 81003; 81025; 82962; 83036; 85025; 85027; 86780; 93005; 93010

== ENCOUNTER 2024-06-13 01:11 | Inpatient (IN) | payer BC ==
[2024-06-13] MEDS ORDERED: NALOXONE (NARCAN) HCL 4 MG/0.1 ML SPRAY NS PRN (01:31)
[2024-06-13] MEDS ORDERED: guaiFENesin 600 MG TABLET.ER (FP) PO PRN (01:31)
[2024-06-13] MEDS ORDERED: IBUPROFEN 400 MG TABLET (FP) PO PRN (01:31)
[2024-06-13] MEDS ORDERED: BENZOCAINE/MENTHOL (CHLORASEPTIC ) LOZENGE MM PRN (01:31)
[2024-06-13] MEDS ORDERED: DICYCLOMINE HCL 10 MG CAPSULE PO PRN (01:31)
[2024-06-13] MEDS ORDERED: BENZONATATE 200 MG CAPSULE PO PRN (01:31)
[2024-06-13] MEDS ORDERED: ONDANSETRON *ODT* 4 MG TABLET SL PRN (01:31)
[2024-06-13] MEDS ORDERED: BISMUTH SUBSALICYLATE 524 MG/30 ML PO PRN (01:31)
[2024-06-13] MEDS ORDERED: ACETAMINOPHEN 325 MG TABLET (FP) PO PRN (01:31)
[2024-06-13] MEDS ORDERED: NICOTINE POLACRILEX 2 MG LOZENGE BC PRN (01:31)
[2024-06-13] MEDS ORDERED: MAGNESIUM HYDROX 2400MG/30ML ORAL SUSPENSION 30 ML CUP PO PRN (01:31)
[2024-06-13] MEDS ORDERED: MAG HYDROX/AL HYDROX/SIMETH 30 ML UNIT-DOSE CUP PO PRN (01:31)
[2024-06-13] MEDS ORDERED: LOPERAMIDE HCL 2 MG CAPSULE PO PRN (01:31)
[2024-06-13 02:35] VITALS: BMI 22.4
[2024-06-13] MEDS ORDERED: hydrOXYzine PAMOATE 25 MG CAPSULE (FP) PO ONE (05:19)
[2024-06-13] MEDS: hydrOXYzine PAMOATE 25 MG CAPSULE (FP) PO PRN (05:22)
[2024-06-13] MEDS ORDERED: ALBUTEROL SO4 HFA INHALER IH PRN (08:32)
[2024-06-13] MEDS ORDERED: methaDONE HCL 10 MG TABLET PO SCH (09:15)
[2024-06-13] MEDS: NICOTINE 21 MG/24 HOURS TOPICAL PATCH TD SCH (10:28)
[2024-06-13] MEDS: PRENATAL VITAMINS W/ FOLIC ACID TABLET (FP) PO SCH (10:28)
[2024-06-13] MEDS: levETIRAcetam 250 MG TABLET PO SCH (10:29)
[2024-06-13] MEDS ORDERED: chlordiazePOXIDE HCL 25 MG CAPSULE ONE (11:54)
[2024-06-13] MEDS: chlordiazePOXIDE HCL 25 MG CAPSULE PO SCH (11:57)
[2024-06-13 12:50] LABS: HEMATOCRIT 36.1 % (32.4-45.2); HEMOGLOBIN 11.8 GM/dL (10.7-15.3); MCH 28.8 pg (25.7-33.7); MCHC 32.8 g/dl (32.0-36.0); PLATELET COUNT 240 10^3/uL (134-434); RDW 15.4 % (11.6-15.6); WHITE BLOOD COUNT 6.7 K/mm3 (4.0-10.0)
[2024-06-13 12:53] LABS: CHLORIDE 103 mmol/L (98-107); POTASSIUM 4.4 mmol/L (3.5-5.1); SODIUM 141 mmol/L (136-145)
[2024-06-13 12:55] LABS: ANION GAP 5 mmol/L (4-13); BLOOD UREA NITROGEN 14.6 mg/dL (7-18); CO2 32 mmol/L (21-32); GLUCOSE,RANDOM 95 mg/dL (74-106)
[2024-06-13 12:58] LABS: CREATININE 0.8 mg/dL (0.55-1.3); SGOT/AST 35 U/L (15-37); SGPT/ALT 66 U/L (13-61)
[2024-06-13 13:00] LABS: BILIRUBIN,TOTAL 0.3 mg/dL (0.2-1); TOT PROT 6.2 g/dl (6.4-8.2)
[2024-06-13 13:01] LABS: ALK PHOS 180 U/L (45-117)
[2024-06-13] MEDS: chlordiazePOXIDE HCL 25 MG CAPSULE PO PRN (18:29)
[2024-06-13] MEDS: IBUPROFEN 600 MG TABLET (FP) PO PRN (20:43)
[2024-06-13] MEDS: MELATONIN 5 MG TABLETS PO SCH (22:44)
[2024-06-13] MEDS: THIAMINE 100 MG TABLET PO SCH (22:44)
[2024-06-13] MEDS: METHOCARBAMOL 500 MG TABLET PO PRN (22:44)
[2024-06-14] MEDS: LIDOCAINE 4% PATCH TP SCH (09:48)
[2024-06-14] MEDS: MINERAL OIL/PETROLAT/WATER TOPICAL CREAM 113 GM JAR TP SCH (12:55)
[2024-06-14] MEDS: METHYL SALICYLATE/MENTHOL 30 GM TUBE TP SCH (14:10)
[2024-06-14] MEDS: TOLNAFTATE 1% POWDER 45 GM POW TP SCH (14:10)
[2024-06-14] MEDS: POLYETHYLENE GLYCOL (HEALTHYLAX) 3350 17 GM PACKET PO PRN (15:11)
[2024-06-14 17:11] VITALS: BP 114/80; PULSE 100; RESP 17; TEMP 98.2
[2024-06-14] MEDS ORDERED: LIDOCAINE PATCH REMOVAL MC SCH (22:00)
[2024-06-14] MEDS ORDERED: SUVOREXANT 10 MG TABLET PO PRN (22:00)
[2024-06-15] MEDS ORDERED: chlordiazePOXIDE HCL 25 MG CAPSULE PO SCH (05:00)
[2024-06-16] MEDS ORDERED: chlordiazePOXIDE HCL 10 MG CAPSULE PO PRN
[2024-06-16] MEDS ORDERED: chlordiazePOXIDE HCL 10 MG CAPSULE PO SCH (05:00)
[2024-06-17] MEDS ORDERED: chlordiazePOXIDE HCL 10 MG CAPSULE PO SCH (05:00)
[2024-06-18] MEDS ORDERED: chlordiazePOXIDE HCL 10 MG CAPSULE PO ONE (05:00)
== END 2024-06-14 18:50 | disposition left against medical advice (07) | DRG 770 ==
LOC: YASAS 01:11 → Y6N 11:51
PROVIDERS: ADMIT Allergy & Immunology; ATTEND Surgery
PROC: HZ2ZZZZ Detoxification Services for Substance Abuse Treatment (ICD-10-PCS; principal; 2024-06-13)
DX: F10.230 Alcohol dependence with withdrawal, uncomplicated (principal); F11.20 Opioid dependence, uncomplicated; F13.20 Sedative, hypnotic or anxiolytic dependence, uncomplicated; F14.20 Cocaine dependence, uncomplicated; F17.210 Nicotine dependence, cigarettes, uncomplicated; F19.282 Other psychoactive substance dependence with psychoactive substance-induced sleep disorder; F19.280 Other psychoactive substance dependence with psychoactive substance-induced anxiety disorder; F41.9 Anxiety disorder, unspecified; G40.909 Epilepsy, unspecified, not intractable, without status epilepticus; J45.20 Mild intermittent asthma, uncomplicated; R73.03 Prediabetes
CPT/HCPCS: 36415; 80053; 80305; 80307; 81025; 85027; 86780

== ENCOUNTER 2024-06-17 00:25 | Inpatient (IN) | payer BC ==
[2024-06-17 01:22] VITALS: BMI 21.4
[2024-06-17] MEDS ORDERED: guaiFENesin 600 MG TABLET.ER (FP) PO PRN (02:41)
[2024-06-17] MEDS ORDERED: LOPERAMIDE HCL 2 MG CAPSULE PO PRN (02:41)
[2024-06-17] MEDS ORDERED: BISMUTH SUBSALICYLATE 524 MG/30 ML PO PRN (02:41)
[2024-06-17] MEDS ORDERED: DICYCLOMINE HCL 10 MG CAPSULE PO PRN (02:41)
[2024-06-17] MEDS ORDERED: MAG HYDROX/AL HYDROX/SIMETH 30 ML UNIT-DOSE CUP PO PRN (02:41)
[2024-06-17] MEDS ORDERED: IBUPROFEN 400 MG TABLET (FP) PO PRN (02:41)
[2024-06-17] MEDS ORDERED: NICOTINE POLACRILEX 2 MG GUM BUC PRN (02:41)
[2024-06-17] MEDS ORDERED: MAGNESIUM HYDROX 2400MG/30ML ORAL SUSPENSION 30 ML CUP PO PRN (02:41)
[2024-06-17] MEDS ORDERED: BENZOCAINE/MENTHOL (CHLORASEPTIC ) LOZENGE MM PRN (02:41)
[2024-06-17] MEDS ORDERED: NALOXONE (NARCAN) HCL 4 MG/0.1 ML SPRAY NS PRN (02:41)
[2024-06-17] MEDS ORDERED: BENZONATATE 200 MG CAPSULE PO PRN (02:41)
[2024-06-17] MEDS ORDERED: POLYETHYLENE GLYCOL (HEALTHYLAX) 3350 17 GM PACKET PO PRN (02:41)
[2024-06-17] MEDS ORDERED: chlordiazePOXIDE HCL 25 MG CAPSULE ONE (03:28)
[2024-06-17] MEDS: chlordiazePOXIDE HCL 25 MG CAPSULE PO PRN (03:29)
[2024-06-17] MEDS: ACETAMINOPHEN 325 MG TABLET (FP) PO PRN (03:31)
[2024-06-17] MEDS ORDERED: ACETAMINOPHEN 325 MG TABLET (FP) ONE (03:31)
[2024-06-17] MEDS: chlordiazePOXIDE HCL 25 MG CAPSULE PO SCH (05:51)
[2024-06-17] MEDS ORDERED: methaDONE HCL 10 MG TABLET PO SCH (07:45)
[2024-06-17] MEDS ORDERED: methaDONE HCL 10 MG TABLET PO ONE (10:05)
[2024-06-17] MEDS: NICOTINE 14 MG/24 HOURS TOPICAL PATCH TD SCH (10:39)
[2024-06-17] MEDS: PRENATAL VITAMINS W/ FOLIC ACID TABLET (FP) PO SCH (10:39)
[2024-06-17] MEDS: hydrOXYzine PAMOATE 25 MG CAPSULE (FP) PO PRN (12:47)
[2024-06-17] MEDS: IBUPROFEN 600 MG TABLET (FP) PO PRN (14:19)
[2024-06-17] MEDS: ONDANSETRON *ODT* 4 MG TABLET SL PRN (14:20)
[2024-06-17] MEDS: METHOCARBAMOL 500 MG TABLET PO PRN (17:32)
[2024-06-17] MEDS ORDERED: MELATONIN 5 MG TABLETS PO SCH (22:00)
[2024-06-17] MEDS: SUVOREXANT 10 MG TABLET PO PRN (22:37)
[2024-06-17] MEDS: THIAMINE 100 MG TABLET PO SCH (22:37)
[2024-06-18] MEDS: chlordiazePOXIDE HCL 25 MG CAPSULE PO SCH (06:00)
[2024-06-18] MEDS: levETIRAcetam 500 MG TABLET (FP) PO SCH (10:07)
[2024-06-18] MEDS: LIDOCAINE 5% TOPICAL PATCH TP SCH (10:12)
[2024-06-18] MEDS: TOLNAFTATE 1% POWDER 45 GM POW TP SCH (11:00)
[2024-06-18 11:32] LABS: HEMATOCRIT 30.3 % (32.4-45.2); HEMOGLOBIN 10.1 GM/dL (10.7-15.3); MCH 29.1 pg (25.7-33.7); MCHC 33.2 g/dl (32.0-36.0); MEAN CELL VOLUME 87.5 fl (80-96); MEAN PLT VOLUME 7.4 fl (7.5-11.1); PLATELET COUNT 185 10^3/uL (134-434); RBC 3.46 M/mm3 (3.60-5.2); RDW 14.6 % (11.6-15.6); WHITE BLOOD COUNT 4.1 K/mm3 (4.0-10.0)
[2024-06-18 11:33] LABS: POTASSIUM 4.2 mmol/L (3.5-5.1)
[2024-06-18 11:35] LABS: ALBUMIN 2.5 g/dl (3.4-5.0); BLOOD UREA NITROGEN 18.8 mg/dL (7-18); CALCIUM 8.3 mg/dL (8.5-10.1)
[2024-06-18 11:39] LABS: CREATININE 0.7 mg/dL (0.55-1.3)
[2024-06-18 11:40] LABS: BILIRUBIN,TOTAL 0.2 mg/dL (0.2-1); TOT PROT 5.7 g/dl (6.4-8.2)
[2024-06-18] MEDS ORDERED: ALBUTEROL SO4 HFA INHALER IH PRN (13:39)
[2024-06-18 17:18] VITALS: RESP 16
[2024-06-18 21:00] VITALS: BP 111/67; PULSE 88; TEMP 97.3
[2024-06-18] MEDS: LIDOCAINE PATCH REMOVAL MC SCH (22:00)
[2024-06-19] MEDS ORDERED: chlordiazePOXIDE HCL 10 MG CAPSULE PO PRN
[2024-06-19] MEDS ORDERED: chlordiazePOXIDE HCL 10 MG CAPSULE PO SCH (05:00)
[2024-06-19] MEDS ORDERED: FERROUS SO4 325 MG TABLET (FP) PO SCH (10:00)
[2024-06-20] MEDS ORDERED: chlordiazePOXIDE HCL 10 MG CAPSULE PO SCH (05:00)
[2024-06-21] MEDS ORDERED: chlordiazePOXIDE HCL 10 MG CAPSULE PO ONE (05:00)
== END 2024-06-18 22:38 | disposition left against medical advice (07) | DRG 770 ==
LOC: YASAS 00:25 → Y3N 03:28
PROVIDERS: ADMIT Allergy & Immunology; ATTEND Allergy & Immunology
PROC: HZ2ZZZZ Detoxification Services for Substance Abuse Treatment (ICD-10-PCS; principal; 2024-06-17)
DX: F10.230 Alcohol dependence with withdrawal, uncomplicated (principal); F11.20 Opioid dependence, uncomplicated; F17.210 Nicotine dependence, cigarettes, uncomplicated; F19.24 Other psychoactive substance dependence with psychoactive substance-induced mood disorder; F41.9 Anxiety disorder, unspecified; G40.909 Epilepsy, unspecified, not intractable, without status epilepticus; G47.00 Insomnia, unspecified; J45.909 Unspecified asthma, uncomplicated; R73.03 Prediabetes
CPT/HCPCS: 36415; 80053; 80305; 80307; 82962; 85027; 86780; 93005; 93010; Q0162

== ENCOUNTER 2024-07-19 09:23 | Inpatient (IN) | payer OTHER ==
[2024-07-19 09:59] VITALS: BMI 19.7
[2024-07-19] MEDS ORDERED: ONDANSETRON *ODT* 4 MG TABLET SL PRN (10:51)
[2024-07-19] MEDS ORDERED: POLYETHYLENE GLYCOL (HEALTHYLAX) 3350 17 GM PACKET PO PRN (10:51)
[2024-07-19] MEDS ORDERED: NALOXONE (NARCAN) HCL 4 MG/0.1 ML SPRAY NS PRN (10:51)
[2024-07-19] MEDS ORDERED: BENZONATATE 200 MG CAPSULE PO PRN (10:51)
[2024-07-19] MEDS ORDERED: BENZOCAINE/MENTHOL (CHLORASEPTIC ) LOZENGE MM PRN (10:51)
[2024-07-19] MEDS ORDERED: guaiFENesin 600 MG TABLET.ER (FP) PO PRN (10:51)
[2024-07-19] MEDS ORDERED: diazePAM 5 MG TABLET ONE (12:04)
[2024-07-19] MEDS ORDERED: cloNIDine HCL 0.1 MG TABLET ONE (12:04)
[2024-07-19] MEDS ORDERED: levETIRAcetam 500 MG TABLET (FP) PO ONE (12:04)
[2024-07-19] MEDS ORDERED: PRENATAL VITAMINS W/ FOLIC ACID TABLET (FP) PO ONE (12:05)
[2024-07-19] MEDS: levETIRAcetam 500 MG TABLET (FP) PO ONE (12:13)
[2024-07-19] MEDS: diazePAM 5 MG TABLET PO SCH (12:13)
[2024-07-19] MEDS ORDERED: methaDONE HCL 40 MG DISPERSABLE TABLET PO ONE (12:57)
[2024-07-19] MEDS: cloNIDine HCL 0.1 MG TABLET PO SCH (13:43)
[2024-07-19] MEDS: IBUPROFEN 600 MG TABLET (FP) PO PRN (15:48)
[2024-07-19] MEDS: MAGNESIUM HYDROX 2400MG/30ML ORAL SUSPENSION 30 ML CUP PO PRN (18:52)
[2024-07-19] MEDS ORDERED: MELATONIN 5 MG TABLETS PO SCH (22:00)
[2024-07-19] MEDS: SUVOREXANT 5 MG TABLET PO PRN (22:30)
[2024-07-19] MEDS: THIAMINE 100 MG TABLET PO SCH (22:31)
[2024-07-19] MEDS: MAG HYDROX/AL HYDROX/SIMETH 30 ML UNIT-DOSE CUP PO PRN (23:19)
[2024-07-20] MEDS: IBUPROFEN 400 MG TABLET (FP) PO PRN (05:32)
[2024-07-20] MEDS ORDERED: methaDONE HCL 40 MG DISPERSABLE TABLET PO SCH (06:00)
[2024-07-20 09:04] LABS: HEMATOCRIT 34.8 % (32.4-45.2); HEMOGLOBIN 11.7 GM/dL (10.7-15.3); MCH 28.8 pg (25.7-33.7); MCHC 33.7 g/dl (32.0-36.0); MEAN CELL VOLUME 85.5 fl (80-96); MEAN PLT VOLUME 6.8 fl (7.5-11.1); PLATELET COUNT 319 10^3/uL (134-434); RBC 4.07 M/mm3 (3.60-5.2); RDW 14.4 % (11.6-15.6); WHITE BLOOD COUNT 6.3 K/mm3 (4.0-10.0)
[2024-07-20] MEDS: PRENATAL VITAMINS W/ FOLIC ACID TABLET (FP) PO SCH (09:23)
[2024-07-20] MEDS: diazePAM 5 MG TABLET PO PRN (09:23)
[2024-07-20] MEDS: methaDONE HCL 10 MG TABLET PO ONE (09:24)
[2024-07-20] MEDS: levETIRAcetam 500 MG TABLET (FP) PO SCH (09:24)
[2024-07-20] MEDS: ACETAMINOPHEN 325 MG TABLET (FP) PO PRN (09:25)
[2024-07-20 09:33] LABS: POTASSIUM 3.9 mmol/L (3.5-5.1)
[2024-07-20 09:39] LABS: BLOOD UREA NITROGEN 24.2 mg/dL (7-18)
[2024-07-20 09:40] LABS: CALCIUM 8.6 mg/dL (8.5-10.1)
[2024-07-20 09:41] LABS: ALBUMIN 3.1 g/dl (3.4-5.0); CREATININE 0.7 mg/dL (0.55-1.3)
[2024-07-20 09:44] LABS: BILIRUBIN,TOTAL 0.2 mg/dL (0.2-1); TOT PROT 6.2 g/dl (6.4-8.2)
[2024-07-20] MEDS: BISMUTH SUBSALICYLATE 524 MG/30 ML PO PRN (14:07)
[2024-07-20] MEDS: hydrOXYzine PAMOATE 25 MG CAPSULE (FP) PO PRN (22:25)
[2024-07-20] MEDS: METHOCARBAMOL 500 MG TABLET PO PRN (22:25)
[2024-07-21] MEDS ORDERED: cloNIDine HCL 0.1 MG TABLET PO PRN
[2024-07-21] MEDS: diazePAM 5 MG TABLET PO SCH (05:25)
[2024-07-21] MEDS: SUVOREXANT 10 MG TABLET PO PRN (21:20)
[2024-07-22] MEDS: diazePAM 5 MG TABLET PO SCH (05:39)
[2024-07-22] MEDS: methaDONE HCL 10 MG TABLET PO ONE (10:09)
[2024-07-22] MEDS: METHOCARBAMOL 500 MG TABLET PO PRN (10:09)
[2024-07-22] MEDS: ALBUTEROL SO4 HFA INHALER IH PRN (13:23)
[2024-07-23] MEDS: LOPERAMIDE HCL 2 MG CAPSULE PO PRN (00:25)
[2024-07-23] MEDS: DICYCLOMINE HCL 10 MG CAPSULE PO PRN (04:41)
[2024-07-23] MEDS: diazePAM 5 MG TABLET PO ONE (05:22)
[2024-07-23] MEDS: NALOXONE (NYS OPIOID OVERDOSE PROGRAM) 4 MG/0.1 ML SPRAY NS SCH (10:08)
[2024-07-23 10:14] VITALS: BP 105/63; PULSE 70; RESP 16; TEMP 98.2
[2024-07-24] MEDS ORDERED: methaDONE HCL 10 MG TABLET PO ONE (10:00)
== END 2024-07-23 10:10 | disposition home or self-care (01) | DRG 773 ==
LOC: YASAS 09:23 → SUATTDRO 09:23 → Y3N 11:56
PROVIDERS: ADMIT Allergy & Immunology; ATTEND Neuromusculoskeletal Medicine & OMM
PROC: HZ2ZZZZ Detoxification Services for Substance Abuse Treatment (ICD-10-PCS; principal; 2024-07-19)
DX: F10.230 Alcohol dependence with withdrawal, uncomplicated (principal); F11.20 Opioid dependence, uncomplicated; F14.20 Cocaine dependence, uncomplicated; F17.210 Nicotine dependence, cigarettes, uncomplicated; F19.24 Other psychoactive substance dependence with psychoactive substance-induced mood disorder; F41.9 Anxiety disorder, unspecified; F13.20 Sedative, hypnotic or anxiolytic dependence, uncomplicated; J45.20 Mild intermittent asthma, uncomplicated; R56.1 Post traumatic seizures; Z62.810 Personal history of physical and sexual abuse in childhood; Z56.0 Unemployment, unspecified; Z59.00 Homelessness unspecified
CPT/HCPCS: 36415; 80053; 80307; 85027; 86780; 93005; 93010